=== PATIENT | female | born 2000 | race Caucasian/White ===

== ENCOUNTER 2023-03-05 22:15 | Observation (INO) | payer OTHER ==
[~2023-03-05] VITALS: Ht 160 cm; Wt 99.8 kg
[2023-03-05 22:30] VITALS: BP 145/78
[2023-03-05] MEDS ORDERED: oxyCODONE/APAP 5/325 MG 1 TAB TAB PO SCH (23:35)
[2023-03-05] MEDS ORDERED: CYCLOBENZAPRINE 10 MG TAB PO SCH (23:35)
[2023-03-06] MEDS ORDERED: PREN-128 PO (00:55)
== END 2023-03-06 02:03 | disposition home or self-care (01) ==
LOC: MLD 22:15
PROVIDERS: ADMIT Obstetrics & Gynecology; ATTEND Obstetrics & Gynecology
DX: O26.892 Other specified pregnancy related conditions, second trimester (principal); R10.9 Unspecified abdominal pain; O99.891 Other specified diseases and conditions complicating pregnancy; M54.50 Low back pain, unspecified; Z3A.27 27 weeks gestation of pregnancy; Z87.59 Personal history of other complications of pregnancy, childbirth and the puerperium
CPT/HCPCS: G0378

== ENCOUNTER 2023-04-28 11:57 | Observation (INO) | payer OTHER ==
[~2023-04-28] VITALS: Ht 162.6 cm; Wt 107.5 kg
[~2023-04-28 11:57] MED LIST: PREN-128 PO
[2023-04-28 12:12] VITALS: BP 138/79; PULSE 111; RESP 18; TEMP 98.2
[2023-04-28] MEDS ORDERED: OSC500 PO (12:17)
[2023-04-28] MEDS ORDERED: FERR-147 PO (12:17)
[2023-04-28] MEDS ORDERED: PRETAB PO (12:17)
[2023-04-28 13:37] LABS: APPEARANCE,URINE CLEAR (CLEAR); BILIRUBIN,URINE NEGATIVE (NEGATIVE); BLOOD, URINE NEGATIVE (NEGATIVE); COLOR,URINE YELLOW (YELLOW); LEUKOCYTE ESTERASE ,URINE TRACE (NEGATIVE); NITRITE, URINE NEGATIVE (NEGATIVE); PH,URINE 6.5 (5.0-9.0); UGLUCOSE 2+ (NEGATIVE)
[2023-04-28 13:49] LABS: RBC,URINE 0-5 /HPF (0-5)
== END 2023-04-28 14:20 | disposition home or self-care (01) ==
LOC: MLD 11:57
PROVIDERS: ADMIT Obstetrics & Gynecology; ATTEND Obstetrics & Gynecology
DX: O36.8130 Decreased fetal movements, third trimester, not applicable or unspecified (principal); Z3A.30 30 weeks gestation of pregnancy
CPT/HCPCS: 76819; 81001; 87086; G0378; G0379; Q0092

== ENCOUNTER 2023-06-10 16:00 | Observation (INO) | payer OTHER ==
[~2023-06-10] VITALS: Ht 160 cm; Wt 114.3 kg
[~2023-06-10 16:00] MED LIST changes: +FERR-147 PO; +OSC500 PO; -PREN-128 PO; +PRETAB PO
[2023-06-10 16:39] VITALS: BP 127/83; PULSE 91; RESP 18; TEMP 98.2
[2023-06-10 18:06] LABS: BASOPHILS % (AUTO) 0.4 % (0.0-2.0); EOSINOPHILS # (AUTO) 0.1 K/uL (0-0.4); EOSINOPHILS % (AUTO) 1.5 % (0.0-4.0); HEMATOCRIT 34.4 % (36-48); HEMOGLOBIN 11.2 g/dL (12.0-16.0); LYMPHOCYTES # (AUTO) 1.7 K/uL (2.5-16.5); LYMPHOCYTES % (AUTO) 18.3 % (20.5-51.1); MEAN CORPUSCULAR HEMOGLOBIN 26 pg (27-31); MEAN CORPUSCULAR HGB CONC 33 g/dL (33-37); MONOCYTES # (AUTO) 0.5 K/uL (0.8-1.0); MONOCYTES % (AUTO) 5.1 % (1.7-9.3); NEUTROPHILS # (AUTO) 6.7 K/uL (1.8-7.7); NEUTROPHILS % (AUTO) 74.7 % (42.2-75.2); PLATELET COUNT (AUTO) 250 K/uL (140-450); RED CELL DISTRIBUTION WIDTH 15.9 % (11.6-13.7)
[2023-06-10 18:10] LABS: APPEARANCE,URINE CLEAR (CLEAR); BILIRUBIN,URINE NEGATIVE (NEGATIVE); BLOOD, URINE NEGATIVE (NEGATIVE); COLOR,URINE YELLOW (YELLOW); LEUKOCYTE ESTERASE ,URINE TRACE (NEGATIVE); NITRITE, URINE NEGATIVE (NEGATIVE); PH,URINE 6.5 (5.0-9.0); UGLUCOSE NEGATIVE (NEGATIVE)
[2023-06-10 18:18] LABS: ALBUMIN 2.2 g/dL (3.4-5.0); CARBON DIOXIDE 22.8 mmol/L (21-32); CREATININE 0.5 mg/dL (0.6-1.3); POTASSIUM 3.8 mmol/L (3.5-5.1); TOTAL BILIRUBIN 0.2 mg/dL (0.0-1.0)
[2023-06-10 18:28] LABS: RBC,URINE 0-5 /HPF (0-5)
[2023-06-10 18:28] LABS: URIC ACID 2.7 mg/dL (2.6-7.2)
[2023-06-10 18:34] LABS: PROTHROMBIN TIME 8.8 secs (10.8-13.4)
== END 2023-06-10 19:30 | disposition home or self-care (01) ==
LOC: MLD 16:00
PROVIDERS: ADMIT Obstetrics & Gynecology; ATTEND Obstetrics & Gynecology
DX: O36.8130 Decreased fetal movements, third trimester, not applicable or unspecified (principal); Z20.822 Contact with and (suspected) exposure to COVID-19; O13.3 Gestational [pregnancy-induced] hypertension without significant proteinuria, third trimester; Z3A.37 37 weeks gestation of pregnancy
CPT/HCPCS: 36415; 76819; 80053; 81001; 82570; 84550; 85025; 85384; 85610; 85730; 87086; 87426; G0378; G0379; Q0092

== ENCOUNTER 2023-06-14 10:05 | Inpatient (IN) | payer OTHER ==
[~2023-06-14] VITALS: Ht 160 cm; Wt 114.8 kg
[2023-06-14] MEDS ORDERED: CARBOPROST 250 MCG/ML AMP IM PRN (10:15)
[2023-06-14] MEDS ORDERED: LACTATED RINGERS 500 ML IV SCH (10:15)
[2023-06-14] MEDS ORDERED: METHYLERGONOVINE 0.2 MG/ML AMP IM PRN (10:15)
[2023-06-14] MEDS ORDERED: PRETAB PO (10:24)
[2023-06-14] MEDS ORDERED: OSC500 PO (10:24)
[2023-06-14] MEDS ORDERED: FERR-20 PO (10:24)
[2023-06-14 10:41] LABS: BASOPHILS % (AUTO) 0.3 % (0.0-2.0); EOSINOPHILS # (AUTO) 0.2 K/uL (0-0.4); EOSINOPHILS % (AUTO) 1.9 % (0.0-4.0); HEMATOCRIT 33.3 % (36-48); HEMOGLOBIN 10.8 g/dL (12.0-16.0); LYMPHOCYTES % (AUTO) 24.3 % (20.5-51.1); MEAN CORPUSCULAR HEMOGLOBIN 26 pg (27-31); MEAN CORPUSCULAR HGB CONC 32 g/dL (33-37); MEAN CORPUSCULAR VOLUME 80.5 fL (80-94); MONOCYTES # (AUTO) 0.6 K/uL (0.8-1.0); MONOCYTES % (AUTO) 6.7 % (1.7-9.3); NEUTROPHILS # (AUTO) 5.6 K/uL (1.8-7.7); NEUTROPHILS % (AUTO) 66.8 % (42.2-75.2); PLATELET COUNT (AUTO) 247 K/uL (140-450); RED BLOOD CELL COUNT(AUTO) 4.14 MIL/uL (4.20-5.40); RED CELL DISTRIBUTION WIDTH 16.3 % (11.6-13.7); WHITE BLOOD COUNT (AUTO) 8.3 K/uL (4.8-10.8)
[2023-06-14 10:58] VITALS: BP 131/63; PULSE 98; RESP 18; TEMP 98.4
[2023-06-14 11:01] LABS: APPEARANCE,URINE CLEAR (CLEAR); BILIRUBIN,URINE NEGATIVE (NEGATIVE); BLOOD, URINE NEGATIVE (NEGATIVE); COLOR,URINE YELLOW (YELLOW); LEUKOCYTE ESTERASE ,URINE NEGATIVE (NEGATIVE); NITRITE, URINE NEGATIVE (NEGATIVE); PH,URINE 6.5 (5.0-9.0); PROTEIN,URINE TRACE (NEGATIVE); UGLUCOSE NEGATIVE (NEGATIVE); UROBILINOGEN,URINE 0.2 EU/dL (0.2 - 1)
[2023-06-14 11:06] LABS: INR 0.88 (0.8-1.2); PROTHROMBIN TIME 9.3 secs (10.8-13.4)
[2023-06-14 11:08] LABS: ALBUMIN 2.2 g/dL (3.4-5.0); ANION GAP 14.9 (8-16); CALCIUM 8.5 mg/dL (8.5-10.1); CARBON DIOXIDE 21.7 mmol/L (21-32); CREATININE 0.5 mg/dL (0.6-1.3); POTASSIUM 3.6 mmol/L (3.5-5.1); TOTAL BILIRUBIN 0.2 mg/dL (0.0-1.0); TOTAL PROTEIN, SERUM 6.4 g/dL (6.4-8.2)
[2023-06-14] MEDS: LACTATED RINGERS 1,000 ML IV SCH ×2 (11:55→19:07)
[2023-06-14] MEDS: MISOPROSTOL 25 MCG TAB VG PRN (12:03)
[2023-06-14] MEDS ORDERED: OXYTOCIN 20 UNITS in LACTATED RINGERS 1,000 ML IV SCH (20:25)
[2023-06-14] MEDS ORDERED: OXYTOCIN 20 UNITS/LR PREMIX 1,000 ML IV ONE ×2 (20:43→21:25)
[2023-06-14 21:31] LABS: URINE TOTAL PROTEIN 43.5 mg/dL (0-12); URINE TPRO CREAT RATIO 0.2 (0-0.20)
[2023-06-15] MEDS: LACTATED RINGERS 1,000 ML IV SCH ×3 (02:54→18:28)
[2023-06-15] MEDS: MISOPROSTOL 25 MCG TAB VG PRN ×3 (10:11→22:36)
[2023-06-16] MEDS: LACTATED RINGERS 1,000 ML IV SCH ×4 (03:06→16:26)
[2023-06-16] MEDS: MISOPROSTOL 25 MCG TAB VG PRN (06:10)
[2023-06-16] MEDS: MORPHINE SULFATE 10 MG/ML VIAL IVP PRN ×3 (13:57→22:08)
[2023-06-16] MEDS: ONDANSETRON 4 MG/2 ML VIAL IVP PRN (13:58)
[2023-06-16] MEDS ORDERED: fentaNYL citrate 0.05 MG/ML VIAL ONE (15:36)
[2023-06-16] MEDS ORDERED: ROPIVACAINE 0.2%/NS PREMIX 200 ML EPI ONE ×2 (15:37→23:00)
[2023-06-16] MEDS ORDERED: LABETALOL 20 MG/4 ML VIAL IVP ONE ×2 (19:00→19:08)
[2023-06-16] MEDS ORDERED: TERBUTALINE 1 MG/ML VIAL SUBQ ONE ×2 (22:00)
[2023-06-17] MEDS: LACTATED RINGERS 1,000 ML IV SCH ×3 (00:33→18:59)
[2023-06-17] MEDS ORDERED: hydrALAZINE 20 MG/ML VIAL IVP ONE (04:35)
[2023-06-17] MEDS ORDERED: hydrALAZINE 20 MG/ML VIAL ONE ×2 (04:36→12:00)
[2023-06-17] MEDS ORDERED: LABETALOL 20 MG/4 ML VIAL IVP ONE ×3 (05:10→12:20)
[2023-06-17] MEDS ORDERED: AMPICILLIN 2,000 MG in NACL 0.9% 100 ML IV SCH (07:15)
[2023-06-17] MEDS ORDERED: AMPICILLIN 2,000 MG VIAL ONE (07:16)
[2023-06-17] MEDS: MORPHINE SULFATE 10 MG/ML VIAL IVP PRN (08:11)
[2023-06-17] MEDS: ONDANSETRON 4 MG/2 ML VIAL IVP PRN (08:12)
[2023-06-17] MEDS ORDERED: ROPIVACAINE 0.2%/NS PREMIX 200 ML EPI ONE (08:21)
[2023-06-17] MEDS ORDERED: ceFAZolin 2,000 MG VIAL ONE (09:29)
[2023-06-17] MEDS ORDERED: MORPHINE PRES FREE 10 MG/10 ML AMP IV ONE (09:45)
[2023-06-17] MEDS ORDERED: HYDROmorphone PFS 2 MG/ML SYR ONE (10:23)
[2023-06-17] MEDS ORDERED: SUGAMMADEX SODIUM 200 MG/2 ML VIAL IV ONE (10:27)
[2023-06-17] MEDS ORDERED: SUGAMMADEX SODIUM 200 MG/2 ML VIAL IV SCH (10:30)
[2023-06-17] MEDS ORDERED: ONDANSETRON 4 MG/2 ML VIAL IVP PRN (10:35)
[2023-06-17] MEDS ORDERED: HYDROmorphone 1 MG/ML AMP IVP PRN (10:35)
[2023-06-17] MEDS ORDERED: OXYTOCIN 20 UNITS/LR PREMIX 1,000 ML IV ONE (11:22)
[2023-06-17] MEDS ORDERED: LABETALOL 20 MG/4 ML VIAL IVP PRN ×2 (12:20→12:25)
[2023-06-17] MEDS ORDERED: MAG SULF 2000 MG/WATER PREMIX 100 ML IV SCH (12:39)
[2023-06-17] MEDS: MAG SULF 20 GM/H2O PREMIX DRIP 500 ML IV PRN (13:43)
[2023-06-17] MEDS ORDERED: MEASLES, MUMPS, AND RUBELLA 1 VIAL SQVAC ONE (17:40)
[2023-06-17] MEDS ORDERED: bisacodyL 5 MG TABEC PO PRN (17:40)
[2023-06-17] MEDS ORDERED: SIMETHICONE 80 MG TAB.CHEW PO PRN (17:40)
[2023-06-17] MEDS ORDERED: METHYLERGONOVINE 0.2 MG/ML AMP IM PRN (17:40)
[2023-06-17] MEDS: KETOROLAC 30 MG/ML VIAL IVP PRN (18:19)
[2023-06-17] MEDS ORDERED: OXYTOCIN 20 UNITS in LACTATED RINGERS 1,000 ML IV SCH (19:15)
[2023-06-18] VITALS (8 sets, daily range): PULSE 115–132; RESP 18–30; O2SAT 88–95
[2023-06-18] MEDS: KETOROLAC 30 MG/ML VIAL IVP PRN (00:23)
[2023-06-18] MEDS: MAG SULF 20 GM/H2O PREMIX DRIP 500 ML IV PRN (00:32)
[2023-06-18] MEDS ORDERED: IPRATROPIUM 0.02% 0.5 MG/2.5 ML NEBU INH ONE ×2 (06:37→17:03)
[2023-06-18] MEDS ORDERED: ALBUTEROL 0.083% 2.5 MG/3 ML NEBU INH ONE ×2 (06:37→17:03)
[2023-06-18 06:47] LABS: BASOPHILS % (AUTO) 0.5 % (0.0-2.0); EOSINOPHILS # (AUTO) 0.1 K/uL (0-0.4); EOSINOPHILS % (AUTO) 2.1 % (0.0-4.0); HEMATOCRIT 33.3 % (36-48); HEMOGLOBIN 11.2 g/dL (12.0-16.0); LYMPHOCYTES # (AUTO) 1.7 K/uL (2.5-16.5); LYMPHOCYTES % (AUTO) 35.6 % (20.5-51.1); MEAN CORPUSCULAR HEMOGLOBIN 28 pg (27-31); MEAN CORPUSCULAR HGB CONC 34 g/dL (33-37); MEAN CORPUSCULAR VOLUME 81.8 fL (80-94); MONOCYTES # (AUTO) 0.5 K/uL (0.8-1.0); MONOCYTES % (AUTO) 9.7 % (1.7-9.3); NEUTROPHILS # (AUTO) 2.4 K/uL (1.8-7.7); NEUTROPHILS % (AUTO) 52.1 % (42.2-75.2); PLATELET COUNT (AUTO) 239 K/uL (140-450); RED BLOOD CELL COUNT(AUTO) 4.07 MIL/uL (4.20-5.40); RED CELL DISTRIBUTION WIDTH 13.5 % (11.6-13.7); WHITE BLOOD COUNT (AUTO) 4.7 K/uL (4.8-10.8)
[2023-06-18] MEDS ORDERED: KETOROLAC 30 MG/ML VIAL IVP PRN (07:00)
[2023-06-18 07:33] LABS: BASOPHILS % (AUTO) 0.1 % (0.0-2.0); HEMOGLOBIN 9.9 g/dL (12.0-16.0); LYMPHOCYTES # (AUTO) 1.3 K/uL (2.5-16.5); RED CELL DISTRIBUTION WIDTH 16.6 % (11.6-13.7)
[2023-06-18 07:40] LABS: EOSINOPHILS # (AUTO) 0.1 K/uL (0-0.4); EOSINOPHILS % (AUTO) 0.4 % (0.0-4.0); HEMATOCRIT 30.8 % (36-48); LYMPHOCYTES % (AUTO) 7.8 % (20.5-51.1); MEAN CORPUSCULAR HEMOGLOBIN 26 pg (27-31); MEAN CORPUSCULAR HGB CONC 32 g/dL (33-37); MEAN CORPUSCULAR VOLUME 79.5 fL (80-94); MONOCYTES # (AUTO) 0.9 K/uL (0.8-1.0); MONOCYTES % (AUTO) 5.4 % (1.7-9.3); NEUTROPHILS % (AUTO) 86.3 % (42.2-75.2); PLATELET COUNT (AUTO) 254 K/uL (140-450); RED BLOOD CELL COUNT(AUTO) 3.87 MIL/uL (4.20-5.40); WHITE BLOOD COUNT (AUTO) 16.3 K/uL (4.8-10.8)
[2023-06-18] MEDS ORDERED: OXYTOCIN 20 UNITS/LR PREMIX 1,000 ML IV ONE (07:43)
[2023-06-18] MEDS ORDERED: NIFEdipine 30 MG TABER PO SCH (09:00)
[2023-06-18] MEDS ORDERED: FUROSEMIDE 20 MG/2 ML VIAL IVP SCH (10:20)
[2023-06-18] MEDS: oxyCODONE/APAP 5/325 MG 1 TAB TAB PO PRN ×2 (13:55→19:01)
[2023-06-18] MEDS ORDERED: hydrALAZINE 20 MG/ML VIAL IVP SCH (15:05)
[2023-06-18] MEDS ORDERED: ALBUTEROL SULFATE/IPRATROPIU 3 ML SOL IH PRN (17:05)
[2023-06-18] MEDS ORDERED: IPRATROPIUM 0.02% 0.5 MG/2.5 ML NEBU INH PRN (17:15)
[2023-06-18] MEDS ORDERED: ALBUTEROL 0.083% 2.5 MG/3 ML NEBU INH PRN (17:15)
[2023-06-18] MEDS ORDERED: FUROSEMIDE 40 MG/4 ML VIAL IVP SCH (17:35)
[2023-06-19] VITALS (9 sets, daily range): BP systolic 136–142; BP diastolic 76; PULSE 99–120; O2SAT 94–98
[2023-06-19] MEDS: oxyCODONE/APAP 5/325 MG 1 TAB TAB PO PRN ×4 (03:17→23:21)
[2023-06-19] MEDS: IBUPROFEN 800 MG TAB PO PRN (08:20)
[2023-06-19] MEDS: NIFEdipine 60 MG TABER PO SCH (09:17)
[2023-06-19] MEDS ORDERED: FUROSEMIDE 40 MG TAB PO SCH (13:30)
[2023-06-19 13:46] LABS: BASOPHILS % (AUTO) 0.3 % (0.0-2.0); EOSINOPHILS # (AUTO) 0.4 K/uL (0-0.4); EOSINOPHILS % (AUTO) 2.8 % (0.0-4.0); HEMOGLOBIN 9.4 g/dL (12.0-16.0); LYMPHOCYTES # (AUTO) 1.8 K/uL (2.5-16.5); LYMPHOCYTES % (AUTO) 12.9 % (20.5-51.1); MEAN CORPUSCULAR HEMOGLOBIN 26 pg (27-31); MEAN CORPUSCULAR HGB CONC 32 g/dL (33-37); MEAN CORPUSCULAR VOLUME 79.8 fL (80-94); MONOCYTES # (AUTO) 0.8 K/uL (0.8-1.0); MONOCYTES % (AUTO) 5.5 % (1.7-9.3); NEUTROPHILS # (AUTO) 10.9 K/uL (1.8-7.7); NEUTROPHILS % (AUTO) 78.5 % (42.2-75.2); PLATELET COUNT (AUTO) 271 K/uL (140-450); RED BLOOD CELL COUNT(AUTO) 3.64 MIL/uL (4.20-5.40); RED CELL DISTRIBUTION WIDTH 16.9 % (11.6-13.7); WHITE BLOOD COUNT (AUTO) 13.8 K/uL (4.8-10.8)
[2023-06-19] MEDS ORDERED: FUROSEMIDE 40 MG/4 ML VIAL IVP SCH (16:00)
[2023-06-20 03:56] VITALS: BP 118/58; PULSE 105; O2SAT 97
[2023-06-20] MEDS: oxyCODONE/APAP 5/325 MG 1 TAB TAB PO PRN ×2 (05:26→21:28)
[2023-06-20 07:19] VITALS: PULSE 103; O2SAT 96
[2023-06-20] MEDS ORDERED: FUROSEMIDE 40 MG/4 ML VIAL IVP SCH ×2 (09:00)
[2023-06-20 09:24] VITALS: PULSE 102; O2SAT 97
[2023-06-20 09:26] VITALS: O2SAT 98
[2023-06-20] MEDS: FUROSEMIDE 40 MG/4 ML VIAL IVP SCH ×2 (09:40→19:18)
[2023-06-20] MEDS: NIFEdipine 60 MG TABER PO SCH (09:40)
[2023-06-20] MEDS: levoFLOXacin 500 MG TAB PO SCH (09:41)
[2023-06-20] MEDS: FERROUS SULFATE 325 MG TABEC PO SCH (09:43)
[2023-06-20 10:05] VITALS: PULSE 110; RESP 20; O2SAT 97
[2023-06-20] MEDS: IBUPROFEN 800 MG TAB PO PRN (10:07)
[2023-06-21] MEDS: IBUPROFEN 800 MG TAB PO PRN (00:36)
[2023-06-21 07:28] VITALS: PULSE 99; RESP 20; O2SAT 98
[2023-06-21] MEDS: FERROUS SULFATE 325 MG TABEC PO SCH (08:55)
[2023-06-21] MEDS: levoFLOXacin 500 MG TAB PO SCH (08:58)
[2023-06-21] MEDS: NIFEdipine 60 MG TABER PO SCH (10:43)
[2023-06-21] MEDS ORDERED: CAMERA MC ONE ×2 (13:45→15:41)
== END 2023-06-21 15:25 | disposition home or self-care (01) | DRG 540 ==
LOC: MLD 10:05 → MFCC 06-17 12:44
PROVIDERS: ADMIT Obstetrics & Gynecology; ATTEND Obstetrics & Gynecology
PROC: 10D00Z1 Extraction of Products of Conception, Low, Open Approach (ICD-10-PCS; principal; 2023-06-17 09:30)
PROC: 5A0935A Assistance with Respiratory Ventilation, Less than 24 Consecutive Hours, High Flow/Velocity Cannula (ICD-10-PCS; 2023-06-18)
PROC: 5A0935A Assistance with Respiratory Ventilation, Less than 24 Consecutive Hours, High Flow/Velocity Cannula (ICD-10-PCS; 2023-06-19)
PROC: 5A0935A Assistance with Respiratory Ventilation, Less than 24 Consecutive Hours, High Flow/Velocity Cannula (ICD-10-PCS; 2023-06-20)
DX: O13.4 Gestational [pregnancy-induced] hypertension without significant proteinuria, complicating childbirth (principal); J81.1 Chronic pulmonary edema; O14.94 Unspecified pre-eclampsia, complicating childbirth; O99.214 Obesity complicating childbirth; O90.89 Other complications of the puerperium, not elsewhere classified; O62.1 Secondary uterine inertia; O69.81X0 Labor and delivery complicated by cord around neck, without compression, not applicable or unspecified; Z20.822 Contact with and (suspected) exposure to COVID-19; O62.2 Other uterine inertia; Z3A.37 37 weeks gestation of pregnancy; Z37.0 Single live birth
CPT/HCPCS: 36415; 51702; 59200; 71045; 71275; 76815; 80053; 81003; 82570; 83735; 84550; 85025; 85384; 85610; 85730; 86592; 86886; 86900; 86901; 94640; J0290; J0360; J1170; J1885; J1940; J2270; J2405; J2590; J2795; J3010; J3105; J3475; J3490; J7120; J7613; J7644; Q0092; Q9967